=== PATIENT | female | born 2000 | race Caucasian/White ===

== ENCOUNTER 2020-05-29 22:14 | Emergency (ER) | payer MEDICAID, OTHER ==
[~2020-05-29] VITALS: Ht 165.1 cm; Wt 150.0 kg
[~2020-05-29 22:14] MED LIST: MOTRIN
[2020-05-29 22:34] VITALS: BP 149/75
== END 2020-05-29 23:10 | disposition left against medical advice (07) ==
LOC: EMS 22:16
DX: M79.672 Pain in left foot (principal); Z53.21 Procedure and treatment not carried out due to patient leaving prior to being seen by health care provider